=== PATIENT | male | born 1985 | race Caucasian/White ===

== ENCOUNTER 2017-10-30 18:39 | Emergency (ER) | payer SELFPAY ==
--- NOTE | 2017-10-30 19:11 | EDM.PDOC ---
ED HPI GENERAL MEDICAL PROBLEM - General Chief Complaint: ENT Problem Stated Complaint: SORE THROAT AND STOMACH Time Seen by Provider: 10/30/17 19:00 Source of Information: Reports: Patient History Limitations: Reports: No Limitations - History of Present Illness INITIAL COMMENTS - FREE TEXT/NARRATIVE: Patient is a 32-year-old male presents ED complaining of sore throat that started approximately 5 days ago and has progressively gotten worse. Initially started on both sides of his throat now is more pronounced on the right. There' s been no documented fever, nausea, vomiting, or inability to control his oral secretions. He has pain with swallowing. Does not complain of any fullness to underneath his tongue. There is no hoarse voice or changes in voice noted. He still eating and drinking okay. There's been no recent sick contact. He has had previous symptoms as such 5 years ago that self resolved. He's had a slight cough nonproductive. No sinus congestion, no runny nose, no nausea or vomiting. Intermittently has some right ear discomfort. He has been taking Tylenol and ibuprofen with food and notes intermittent mild stomach irritation. He's had no history of peptic ulcer, acid reflux, blood in stool, or melena. Patient is recovering alcoholic, 1.5 years. He denies any additional past medical history and is currently taking no medications. Surgical history none. Patient does smoke half pack per day. Denies any recreational drug use. Throat Pain Score (Numeric/FACES): 9 - Related Data Allergies Allergy/AdvReac Type Severity Reaction Status Date / Time No Known Allergies Allergy Verified 10/30/17 18:56 Home Meds: Home Meds Amoxicillin/Potassium Clav [Augmentin 875-125 Tablet] 1 each PO BID #19 tablet 10/30/17 [Rx] Past Medical History - Past Health History Medical/Surgical History: Denies Medical/Surgical History Social & Family History - Tobacco Use Smoking Status *Q: Current Every Day Smoker Years of Tobacco use: 13 Packs/Tins Daily: 0.5 - Caffeine Use Caffeine Use: Reports: Coffee, Energy Drinks, Soda, Tea - Recreational Drug Use Recreational Drug Type: Reports: Marijuana/Hashish ED ROS ENT - Review of Systems Review Of Systems: ROS reveals no pertinent complaints other than HPI. ED EXAM, ENT - Physical Exam Exam: See Below Exam Limited By: No Limitations General Appearance: Alert, WD/WN, No Apparent Distress Ears: Hearing Grossly Normal, TM Obscured by Cerumen (Bilateral) Nose: Normal Inspection, Normal Mucousa, No Blood Mouth/Throat: Normal Inspection, Pharyngeal Erythema, Throat Pain, Throat Swelling, Tonsillar Erythema (Throughout), Tonsillar Exudates (Intermittent white specks coating the tonsils.), Tonsillar Swelling. No: Dental Abcess, Dental Pain, Dental Tenderness, Drooling, Dry Mucous Membrane, Hoarse Voice, Muffled Voice, Tongue Swelling, Trismus Head: Atraumatic, Normocephalic Neck: Normal Inspection, Supple, Non-Tender, Full Range of Motion, Lymphadenopathy (R). No: Lymphadenopathy (L) Respiratory/Chest: No Respiratory Distress, Lungs Clear, Normal Breath Sounds, Chest Non-Tender Cardiovascular: Normal Peripheral Pulses, Regular Rate, Rhythm GI/Abdominal: Normal Bowel Sounds, Soft, Non-Tender, No Organomegaly, No Distention Neurological: Alert, Oriented, CN II-XII Intact, Normal Cognition Psychiatric: Normal Affect, Normal Mood Skin: Warm, Dry, Intact, No Rash Course - Vital Signs Last Recorded V/S: Last Vital Signs Temp 98.1 F 10/30/17 20:00 Pulse 81 10/30/17 20:00 Resp 18 10/30/17 20:00 BP 149/100 H 10/30/17 18:49 Pulse Ox 97 10/30/17 20:00 - Orders/Labs/Meds Orders: Active Orders 24 hr Category Date Time Status CULTURE STREP A CONFIRMATION [] Stat Lab 10/30/17 19:10 Results STREP SCRN A RAPID W CULT CONF [] Stat Lab 10/30/17 19:10 Ordered Meds: Medications Discontinued Medications Generic Name Dose Route Start Last Admin Trade Name Freq PRN Reason Stop Dose Admin Amoxicillin/Clavulanate Potassium 1 tab 10/30/17 19:51 10/30/17 19:58 Augmentin 875 Mg/125 Mg PO 10/30/17 19:52 1 tab ONETIME ONE Administration - Re-Assessments/Exams Free Text/Narrative Re-Assessment/Exam: Will obtain a strep screen. It appears patient clinically has strep throat. He does have tonsillar lymphadenopathy noted the right side. There is no uvula deviation. White exudates to the tonsils noted. Posterior pharynx is quite erythematous. 10/30/17 19:52 Strep screen was negative. Clinically I believe patient has strep throat. Ordered Augmentin 875 one tab by mouth. We'll discharge patient home with instructions as documented. Departure - Departure Time of Disposition: 19:52 Disposition: Home, Self-Care 01 Condition: Good Clinical Impression: Strep throat - Discharge Information Prescriptions: Amoxicillin/Potassium Clav [Augmentin 875-125 Tablet] 1 each PO BID #19 tablet Instructions: Strep Throat, [id number], Sore Throat, [id number] Referrals: PCP,None [Primary Care Provider] - Forms: ED Department Discharge Additional Instructions: Clinically I believe he had strep throat. Treatment will be Augmentin 875 one tab by mouth twice a day for a total 10 days. First dose was given in the ED. Keep well-hydrated. He about stye. Utilize Tylenol 650 mg every 4-6 hours for discomfort. May use Aleve 1-2 tabs twice a day. Take with food to decrease any irritation of the stomach. Suggest using Zantac 150 once a day if he developed any stomach irritation. Please follow up with a primary care provider at the [facility] [place], operated by [facility] in [place] on follow-up to ensure resolution. Return to the ED if you develop any new or worsening symptoms. - My Orders Last 24 Hours: My Active Orders 10/30/17 19:10 CULTURE STREP A CONFIRMATION [RM] Stat STREP SCRN A RAPID W CULT CONF [] Stat - Assessment/Plan Last 24 Hours: My Active Orders 10/30/17 19:10 CULTURE STREP A CONFIRMATION [RM] Stat STREP SCRN A RAPID W CULT CONF [RM] Stat
[2017-10-30] MEDS ORDERED: Amoxicillin/Clavulanate K 875-125 MG Tab PO ONE (19:51)
== END 2017-10-30 20:03 | disposition home or self-care (01) ==
LOC: JD.ED 18:39
DX: J02.0 Streptococcal pharyngitis (principal); F17.210 Nicotine dependence, cigarettes, uncomplicated
CPT/HCPCS: 87081; 87430; 99283; A9270

== ENCOUNTER 2018-11-17 11:09 | Emergency (ER) | payer SELFPAY ==
[2018-11-17] MEDS ORDERED: Ketorolac 30 MG/ML SDV IM ONE (11:40)
--- NOTE | 2018-11-17 11:46 | EDM.PDOC ---
ED HPI GENERAL MEDICAL PROBLEM - General Chief Complaint: ENT Problem Stated Complaint: TOOTH ACHE Time Seen by Provider: 11/17/18 11:16 Source of Information: Reports: Patient, RN Notes Reviewed History Limitations: Reports: No Limitations - History of Present Illness INITIAL COMMENTS - FREE TEXT/NARRATIVE: Patient is a 33-year-old male who presents to the ED for the evaluation of tooth pain. The patient notes he has a couple cavities. He has pain mostly on the left side of his face, both on the upper and lower jaw. He believes that his upper side of his left jaw has a tooth that is broken away, and possibly just a cavity on the bottom part of his jaw. He states he's called around all the dentists in [place], and they're not able to get him in for a few weeks. He is sensitive to hot and cold sensations. He has been having some good pain relief with aspirin, but has been taking a lot of this over the past few days. He notes he does have some shooting pain into his upper left jaw, that radiates to the left side of his head. He denies any headache at this time. No blurred vision or double vision, no hearing problems. He further denies any other sinus or cold-like symptoms. Left Tooth/Teeth Pain Score (Numeric/FACES): 4 - Related Data Allergies Allergy/AdvReac Type Severity Reaction Status Date / Time No Known Allergies Allergy Verified 11/17/18 11:19 Home Meds: Home Meds Amoxicillin/Clavulanate K [Augmentin 875-125 MG] 1 tab PO BID #20 tablet [Rx] Past Medical History - Past Health History Medical/Surgical History: Denies Medical/Surgical History Social & Family History - Tobacco Use Smoking Status *Q: Current Every Day Smoker Years of Tobacco use: 10 Packs/Tins Daily: 1 - Caffeine Use Caffeine Use: Reports: Coffee - Recreational Drug Use Recreational Drug Use: No ED ROS ENT - Review of Systems Review Of Systems: See Below Constitutional: Reports: No Symptoms HEENT: Reports: Dental Pain. Denies: Sinus Problem Respiratory: Reports: No Symptoms Cardiovascular: Reports: No Symptoms Endocrine: Reports: No Symptoms GI/Abdominal: Reports: No Symptoms : Reports: No Symptoms Musculoskeletal: Reports: No Symptoms Skin: Reports: No Symptoms Neurological: Reports: No Symptoms Psychiatric: Reports: No Symptoms Hematologic/Lymphatic: Reports: No Symptoms Immunologic: Reports: No Symptoms ED EXAM, ENT - Physical Exam Exam: See Below Exam Limited By: No Limitations General Appearance: Alert, WD/WN, No Apparent Distress Eye Exam: Bilateral Eye: EOMI, Normal Inspection, PERRL Ears: Normal External Exam, Normal Canal, Hearing Grossly Normal, Normal TMs Nose: Normal Inspection, Normal Mucousa, No Blood Mouth/Throat: Normal Inspection, Normal Gums, Normal Lips, Normal Oropharynx, Normal Teeth (Dentition in fair repair), Dental Pain (Noted to the left upper molars and lower left molars.) Head: Atraumatic, Normocephalic Neck: Normal Inspection, Supple, Non-Tender, Full Range of Motion Respiratory/Chest: No Respiratory Distress, Lungs Clear, Normal Breath Sounds, No Accessory Muscle Use, Chest Non-Tender Cardiovascular: Normal Peripheral Pulses, Regular Rate, Rhythm, No Murmur Extremities: Normal Inspection, Normal Capillary Refill Neurological: Alert, Oriented, Normal Cognition, No Motor/Sensory Deficits Psychiatric: Normal Affect, Normal Mood Skin: Warm, Dry, Intact, Normal Color, No Rash Course - Vital Signs Last Recorded V/S: Last Vital Signs Temp 98.1 F 11/17/18 11:15 Pulse 63 11/17/18 11:15 Resp 14 11/17/18 11:15 BP 147/75 H 11/17/18 11:15 Pulse Ox 94 L 11/17/18 11:15 - Orders/Labs/Meds Meds: Medications Discontinued Medications Generic Name Dose Route Start Last Admin Trade Name Bassemq PRN Reason Stop Dose Admin Ketorolac Tromethamine 30 mg 11/17/18 11:40 Toradol IM 11/17/18 11:41 ONETIME ONE - Re-Assessments/Exams Free Text/Narrative Re-Assessment/Exam: 11/17/18 11:47 Patient presents to the ED for evaluation of tooth pain. I do believe the patient would benefit from a course of antibiotics, I also have ordered 30 mg IM Toradol for pain relief. I have given general recommendations and will provide the patient with a list of dentists located in [place] as well so that he might be able to find dental care sooner than a few weeks. Departure - Departure Time of Disposition: 11:48 Disposition: Home, Self-Care 01 Condition: Fair Clinical Impression: Dental caries - Discharge Information *PRESCRIPTION DRUG MONITORING PROGRAM REVIEWED*: No *COPY OF PRESCRIPTION DRUG MONITORING REPORT IN PATIENT FIDE: No Prescriptions: Amoxicillin/Clavulanate K [Augmentin 875-125 MG] 1 tab PO BID #20 tablet Instructions: Diet and Dental Disease, Preventive Dental Care, Adult Referrals: PCP,None [Primary Care Provider] - Additional Instructions: You have been evaluated in the ED for your dental pain. You have been provided with a script for Augmentin. This was electronically sent to [facility] located on [address]. Please take this medication as directed. (1 tab twice daily for 10 days or until gone). This medication may cause some diarrhea, recommend that you take a probiotic as well. Aleve provides good pain relief for dental pain. Please take 1-2 tabs twice daily as needed for pain. You may use hot pack/ ice packs to the affected area as tolerated in 15-20 minute intervals. You will ultimately need to find a dentist to provide definitive management of your dental pain. Please return to the ED if your symptoms change or worsen.
== END 2018-11-17 11:57 | disposition home or self-care (01) ==
LOC: JD.ED 11:09
DX: K02.9 Dental caries, unspecified (principal); F17.210 Nicotine dependence, cigarettes, uncomplicated
CPT/HCPCS: 96372; 99282; J1885; 99283

== ENCOUNTER 2019-02-16 21:28 | Emergency (ER) | payer SELFPAY ==
[2019-02-16] MEDS ORDERED: Diphtheria,Pertussis(Acell),Tetanus Vaccine 0.5 ML SDV IM ONE (22:06)
[2019-02-16] MEDS ORDERED: Lidocaine 1% 10 ML MDV INJECT ONE (22:06)
[2019-02-16] MEDS ORDERED: Bupivacaine 0.5% 10 ML SDV INJECT ONE (22:06)
--- NOTE | 2019-02-16 22:09 | EDM.PDOC ---
ED HPI GENERAL MEDICAL PROBLEM - General Chief Complaint: General Stated Complaint: FISH HOOK IN PINKY FINGER LEFT HAND Time Seen by Provider: 02/16/19 21:44 Source of Information: Reports: Patient History Limitations: Reports: No Limitations - History of Present Illness INITIAL COMMENTS - FREE TEXT/NARRATIVE: The patient states that he accidentally dropped his tackle box, and when he went to corn picker a fishhook, he didn't realize that the fishhook was still connected to a fishing pole, which caused the fishhook to stay in place when he went to move it, driving one of the barbs into his left 5th finger, around 20: 45 tonight. He is otherwise uninjured. The patient states that his last tetanus vaccination was probably 15-20 years ago. The patient does not have a PCP. Left Finger-Little Pain Score (Numeric/FACES): 0 - Related Data Allergies Allergy/AdvReac Type Severity Reaction Status Date / Time No Known Allergies Allergy Verified 11/17/18 11:19 Home Meds: Home Meds Cephalexin [Keflex] 1 tab PO Q6H #20 capsule 02/16/19 [Rx] Past Medical History - Past Health History Medical/Surgical History: Denies Medical/Surgical History Social & Family History - Tobacco Use Smoking Status *Q: Current Every Day Smoker Years of Tobacco use: 14 Packs/Tins Daily: 0.5 Packs/Tins Daily Comment: Down from 2 ppd - Caffeine Use Caffeine Use: Reports: Coffee - Alcohol Use Alcohol Use History: Yes Alcohol Use Frequency: Rarely - Recreational Drug Use Recreational Drug Use: Yes Drug Use in Last 12 Months: No Recreational Drug Type: Reports: Marijuana/Hashish (last smoked in 2015) - Living Situation & Occupation Living situation: Reports: Single, Alone Occupation: Employed ([employer]) ED ROS GENERAL - Review of Systems Review Of Systems: ROS reveals no pertinent complaints other than HPI. ED EXAM, GENERAL - Physical Exam Exam: See Below Exam Limited By: No Limitations General Appearance: Alert, WD/WN, No Apparent Distress Extremities: Other (There is a 3-prong fishhook, with one of the prongs stuck into the patient's left fifth finger, radial aspect, of the proximal phalanx, just proximal to the PIP joint. The tip of the hook is embedded in the soft tissue; it has not exited through the skin. The patient reports mild paresthesia to the left finger, but overall, neurovascular status of the finger appears to be intact.) Foreign Body Removal - Pre-Procedure Indication: [place] in left 5th finger Consent Obtained: Reports: Patient Performing Doctor:: Lucas Akers - Post-Procedure Complications:: No Comments:: See procedure note under reassessment/exam Course - Vital Signs Last Recorded V/S: Last Vital Signs Temp 36.4 C 02/16/19 21:38 Pulse 77 02/16/19 21:38 Resp 16 02/16/19 21:38 BP 143/116 H 02/16/19 21:38 Pulse Ox 99 02/16/19 21:38 - Orders/Labs/Meds Orders: Active Orders 24 hr Category Date Time Status Vaccines to be Administered [RC] PER UNIT ROUTINE Care 02/16/19 22:06 Active Toes Fifth Digit Rt T9 [CR] Stat Exams 02/16/19 22:40 Stop Req Meds: Medications Discontinued Medications Generic Name Dose Route Start Last Admin Trade Name Niharika PRN Reason Stop Dose Admin Bupivacaine HCl 10 ml 02/16/19 22:06 02/16/19 22:19 Sensorcaine-Mpf 0.5% INJECT 02/16/19 22:07 10 ml ONETIME ONE Administration Cephalexin 500 mg 02/16/19 22:50 02/16/19 23:18 Keflex PO 02/16/19 22:51 Not Given ONETIME STA Diphtheria/Tetanus/Acell Pertussis 0.5 ml 02/16/19 22:06 02/16/19 22:18 Adacel IM 02/16/19 22:07 0.5 ml .ONCE ONE Administration Lidocaine HCl 10 ml 02/16/19 22:06 02/16/19 22:19 Xylocaine 1% INJECT 02/16/19 22:07 10 ml ONETIME ONE Administration - Re-Assessments/Exams Free Text/Narrative Re-Assessment/Exam: 02/16/19 22:07 I don't believe I'm going to be able to back the hook out, therefore I will apply a digital block to the finger, cut the hook, then push it through. The patient will be given a tetanus vaccination during this ED visit. 02/16/19 22:48 A digital block was applied to the patient's left 5th finger, using a 50:50 admixture of lidocaine 1% without epinephrine and bupivacaine 0.5% without epinephrine. Within a few minutes, there was good anesthesia to the entire finger. The fishhook ovi was clipped and pushed through, without incident. The patient tolerated the procedure well. I will start him on oral Keflex, and prescribe a 5-day course of the same. Departure - Departure Time of Disposition: 22:52 Disposition: Home, Self-Care 01 Condition: Good Clinical Impression: [place] injury to finger - Discharge Information *PRESCRIPTION DRUG MONITORING PROGRAM REVIEWED*: Not Applicable *COPY OF PRESCRIPTION DRUG MONITORING REPORT IN PATIENT FIDE: Not Applicable Prescriptions: Cephalexin [Keflex] 1 tab PO Q6H #20 capsule Referrals: PCP,None [Primary Care Provider] - Forms: ED Department Discharge Additional Instructions: You were seen in the emergency room after getting a fish hook into your left fifth finger. A digital block was applied to your finger, and the fishhook was pushed through. Keep your finger clean with ordinary soap and water when you bathe. You have been started on the antibiotic Keflex. A prescription for Keflex has been sent to the [facility], located at [address] [place] [address]. Take one tablet of Keflex every 6 hours, as prescribed. Finish the entire prescription unless told otherwise by a doctor. Take roab-xck-bmewvic ibuprofen, 2-3 tablets (400-600 mg) every 8 hours, with food, as needed for discomfort. You received a tetanus vaccination during your ER visit. Your finger will not likely get infected, but if there are concerns of infection , including significant swelling, redness, drainage, or fever, please return to the ER for reevaluation. - My Orders Last 24 Hours: My Active Orders 02/16/19 22:06 Vaccines to be Administered [RC] PER UNIT ROUTINE 02/16/19 22:40 Toes Fifth Digit Rt T9 [CR] Stat - Assessment/Plan Last 24 Hours: My Active Orders 02/16/19 22:06 Vaccines to be Administered [RC] PER UNIT ROUTINE 02/16/19 22:40 Toes Fifth Digit Rt T9 [CR] Stat
[2019-02-16] MEDS ORDERED: Cephalexin 500 MG Cap PO STA (22:50)
== END 2019-02-16 23:18 | disposition home or self-care (01) ==
LOC: JD.ED 21:28
DX: S60.457A Superficial foreign body of left little finger, initial encounter (principal); F17.210 Nicotine dependence, cigarettes, uncomplicated; Z23 Encounter for immunization; W45.8XXA Other foreign body or object entering through skin, initial encounter
CPT/HCPCS: 64450; 90471; 90715; 99283; J2001; J3490; 10120

== ENCOUNTER 2019-09-14 23:43 | Emergency (ER) | payer SELFPAY ==
[2019-09-15] MEDS ORDERED: Doxycycline 100 MG Cap PO ONE (00:49)
--- NOTE | 2019-09-15 01:05 | EDM.PDOC ---
ED HPI GENERAL MEDICAL PROBLEM - General Chief Complaint: ENT Problem Stated Complaint: COUGH SORE THROAT FEVER Time Seen by Provider: 09/15/19 00:40 Source of Information: Reports: Patient, RN Notes Reviewed - History of Present Illness INITIAL COMMENTS - FREE TEXT/NARRATIVE: 34-year-old male comes in with throat pain. Last weekend he had throat discomfort, some sinus congestion headache muscle aching fever chills. Did start getting better and then in the past half day or so the throat pain has been worsening. Is now painful to swallow. He is no longer coughing much. He is still having some chills but no fever at this time. Throat Pain Score (Numeric/FACES): 6 - Related Data Allergies Allergy/AdvReac Type Severity Reaction Status Date / Time No Known Allergies Allergy Verified 09/14/19 23:54 Home Meds: Home Meds Doxycycline [Vibramycin] 100 mg PO BID #14 tab 09/15/19 [Rx] Past Medical History - Past Health History Medical/Surgical History: Denies Medical/Surgical History - Infectious Disease History Infectious Disease History: Reports: None Social & Family History - Tobacco Use Smoking Status *Q: Unknown Ever Smoked - Caffeine Use Caffeine Use: Reports: Coffee - Living Situation & Occupation Living situation: Reports: Single, Alone Occupation: Employed ([employer] ED ROS ENT - Review of Systems Review Of Systems: See Below Constitutional: Reports: Fever, Chills HEENT: Reports: Rhinitis (Better), Throat Pain Respiratory: Reports: Cough. Denies: Shortness of Breath, Wheezing, Sputum (Is no) Cardiovascular: Denies: Chest Pain GI/Abdominal: Denies: Abdominal Pain, Vomiting Musculoskeletal: Reports: Other (He had achiness several days ago now gone) Skin: Reports: No Symptoms Neurological: Reports: Headache ED EXAM, ENT - Physical Exam Exam: See Below (On) General Appearance: Alert, No Apparent Distress Eye Exam: Bilateral Eye: PERRL Nose: Normal Inspection Mouth/Throat: Pharyngeal Erythema (Mild). No: Throat Swelling, Tonsillar Exudates, Tonsillar Swelling Head: No: Facial Swelling Neck: Supple. No: Lymphadenopathy (L), Lymphadenopathy (R) Respiratory/Chest: No Respiratory Distress, Lungs Clear, Normal Breath Sounds Cardiovascular: Tachycardia Neurological: Alert, Oriented, No Motor/Sensory Deficits Skin: Warm, Dry, Normal Color Course - Vital Signs Last Recorded V/S: Last Vital Signs Temp 97.5 F 09/14/19 23:54 Pulse 101 H 09/14/19 23:54 Resp 16 09/14/19 23:54 BP 132/75 09/14/19 23:54 Pulse Ox 100 09/14/19 23:54 - Orders/Labs/Meds Orders: Active Orders 24 hr Category Date Time Status CULTURE STREP A CONFIRMATION [RM] Stat Lab 09/14/19 23:50 Results STREP SCRN A RAPID W CULT CONF [RM] Stat Lab 09/14/19 23:50 Results Meds: Medications Discontinued Medications Generic Name Dose Route Start Last Admin Trade Name Niharika PRN Reason Stop Dose Admin Doxycycline Hyclate 100 mg 09/15/19 00:49 09/15/19 00:59 Vibramycin PO 09/15/19 00:50 100 mg ONETIME ONE Administration - Re-Assessments/Exams Free Text/Narrative Re-Assessment/Exam: 09/15/19 01:48 Rapid strep did come back negative. We will send a prescription home with him doxycycline use if pain does not get better as expected. Departure - Departure Time of Disposition: 01:48 Disposition: Home, Self-Care 01 Condition: Fair Clinical Impression: Pharyngitis - Discharge Information Prescriptions: Doxycycline [Vibramycin] 100 mg PO BID #14 tab Instructions: Pharyngitis, [id number] Referrals: PCP,None [Primary Care Provider] - Forms: ED Department Discharge Additional Instructions: Your strep screen did come back negative so the throat discomfort you have is likely viral. Discomfort does not get better over the next 12 to 24 hours fill the prescription for doxycycline and take that 1 twice daily for 1 week. You can alternate Tylenol and ibuprofen as needed. Follow-up clinic as needed, return to ED as needed. Sepsis Event Note - Evaluation Sepsis Screening Result: No Definite Risk - Focused Exam Vital Signs: Vital Signs Temp Pulse Resp BP Pulse Ox 09/14/19 23:54 97.5 F 101 H 16 132/75 100 Date Exam was Performed: 09/15/19 Time Exam was Performed: 04:18 - My Orders Last 24 Hours: My Active Orders 09/14/19 23:50 CULTURE STREP A CONFIRMATION [RM] Stat STREP SCRN A RAPID W CULT CONF [RM] Stat - Assessment/Plan Last 24 Hours: My Active Orders 09/14/19 23:50 CULTURE STREP A CONFIRMATION [RM] Stat STREP SCRN A RAPID W CULT CONF [RM] Stat
== END 2019-09-15 01:52 | disposition home or self-care (01) ==
LOC: JD.ED 23:43
DX: J02.9 Acute pharyngitis, unspecified (principal)
CPT/HCPCS: 87081; 87430; 99283; A9270

== ENCOUNTER 2020-08-05 16:30 | Emergency (ER) | payer SELFPAY ==
[2020-08-05] MEDS ORDERED: Sodium Chloride 0.9% 10 ML Syringe FLUSH PRN (16:45)
--- NOTE | 2020-08-05 16:58 | EDM.PDOC ---
ED HPI GENERAL MEDICAL PROBLEM - General Chief Complaint: Chemical Exposure Stated Complaint: ACCIDENTALLY DRANK HYDROCHLORIC ACID Time Seen by Provider: 08/05/20 16:39 Source of Information: Reports: Patient, RN Notes Reviewed History Limitations: Reports: No Limitations - History of Present Illness INITIAL COMMENTS - FREE TEXT/NARRATIVE: Patient is a 35 who presents to the ED after accidentally ingesting HCl. Patient notes about 20 minutes prior to arrival, he accidentally drank about 1 ounce of a rust sustainable agriculture specialist, that he mistakenly thought was a shot of alcohol. As it was sitting in a shot glass near a wire walker Kristopher's shot he was supposed to take. He states he felt a little bit nauseous, and did vomit twice but right now he is just having some epigastric burning, but feeling fine. Patient denies any other sick-like symptoms, fever/chills, cough/shortness of breath, nausea/vomiting/diarrhea. Epigastric Pain Score (Numeric/FACES): 3 - Related Data Allergies Allergy/AdvReac Type Severity Reaction Status Date / Time pineapple Allergy Hives Verified 08/05/20 16:40 Home Meds: Home Meds Doxycycline [Vibramycin] 100 mg PO BID #14 tab 09/15/19 [Rx] Past Medical History - Past Health History Medical/Surgical History: Denies Medical/Surgical History - Infectious Disease History Infectious Disease History: Reports: None Social & Family History - Tobacco Use Tobacco Use Status *Q: Current Every Day Tobacco User Years of Tobacco use: 16 Packs/Tins Daily: 1 - Caffeine Use Caffeine Use: Reports: None - Recreational Drug Use Recreational Drug Use: No - Living Situation & Occupation Living situation: Reports: Single, Alone Occupation: Employed ([employer]) ED ROS GENERAL - Review of Systems Review Of Systems: Comprehensive ROS is negative, except as noted in HPI. ED EXAM, BURN/SMOKE INHALATION - Physical Exam Exam: See Below Exam Limited By: No Limitations General Appearance: Alert, WD/WN, No Apparent Distress Mouth/Throat: No Symptoms Reported (no sign of waddell or otherwise) Respiratory: No Respiratory Distress, Lungs Clear, Normal Breath Sounds, No Accessory Muscle Use, Chest Non-Tender Cardiovascular: Normal Peripheral Pulses, Regular Rate, Rhythm, No Edema GI/Abdominal: Normal Bowel Sounds, Soft, Non-Tender, No Distention, No Mass Extremities: Normal Inspection, Normal Capillary Refill Neurological: Alert, Oriented, Normal Cognition, No Motor/Sensory Deficits Psychiatric: Normal Affect, Normal Mood Skin Exam: Warm, Dry, Intact, Normal Color, No Rash #1 Interpretation EKG Date: 08/05/20 Time: 16:45 Rhythm: NSR Rate (Beats/Min): 88 [place]: Normal P-Wave: Present QRS: Normal ST-T: Normal QT: Normal EKG Interpretation Comments: No obvious ischemia or acute ST changes noted, reviewed by myself and Dr. Sanchez. Course - Vital Signs Last Recorded V/S: Last Vital Signs Temp 97 F 08/05/20 16:37 Pulse 87 08/05/20 18:13 Resp 18 08/05/20 18:13 BP 145/85 H 08/05/20 18:13 Pulse Ox 99 08/05/20 18:13 - Orders/Labs/Meds Orders: Active Orders 24 hr Category Date Time Status EKG Documentation Completion [RC] STAT Care 08/05/20 16:45 Ordered Peripheral IV Care [RC] . DIRECTED Care 08/05/20 16:45 Ordered CBC WITH AUTO DIFF [HEME] Q2 Lab 08/05/20 18:45 Ordered CBC WITH AUTO DIFF [HEME] [facility] Lab 08/05/20 19:45 Ordered CBC WITH AUTO DIFF [HEME] [facility] Lab 08/05/20 20:45 Ordered COMPREHENSIVE METABOLIC PN,CMP [CHEM] Q2 Lab 08/05/20 18:45 Ordered COMPREHENSIVE METABOLIC PN,CMP [CHEM] Q2 Lab 08/05/20 19:45 Ordered COMPREHENSIVE METABOLIC PN,CMP [CHEM] Q2 Lab 08/05/20 20:45 Ordered MAGNESIUM [CHEM] Q2 Lab 08/05/20 18:45 Ordered MAGNESIUM [CHEM] Q2 Lab 08/05/20 19:45 Ordered MAGNESIUM [CHEM] Q2 Lab 08/05/20 20:45 Ordered Sodium Chloride 0.9% [Saline Flush] Med 08/05/20 16:45 Ordered 10 ml FLUSH ASDIRECTED PRN Peripheral IV Insertion Adult [OM.PC] Routine Oth 08/05/20 16:44 Ordered Medication Orders Sodium Chloride (Saline Flush) 10 ml FLUSH ASDIRECTED PRN PRN Reason: Keep Vein Open Last Admin: 08/05/20 16:57 Dose: 10 ml Documented by: CRYSTAL Labs: Laboratory Tests 08/05/20 08/05/20 08/05/20 Range/Units 16:59 16:59 17:50 WBC 10.31 H 14.78 H (4.23-9.07) K/mm3 RBC 5.13 5.04 (4.63-6.08) M/mm3 Hgb 14.6 14.4 (13.7-17.5) gm/dl Hct 45.2 44.8 (40.1-51.0) % MCV 88.1 88.9 (79.0-92.2) fl MCH 28.5 28.6 (25.7-32.2) pg MCHC 32.3 32.1 L (32.2-35.5) g/dl RDW Std Deviation 42.8 42.7 (35.1-43.9) fL Plt Count 475 H 484 H (163-337) K/mm3 MPV 9.8 9.8 (9.4-12.3) fl Neut % (Auto) 61.5 69.6 H (34.0-67.9) % Lymph % (Auto) 26.0 18.1 L (21.8-53.1) % Moody % (Auto) 7.3 9.1 (5.3-12.2) % Eos % (Auto) 4.5 2.6 (0.8-7.0) Baso % (Auto) 0.6 0.4 (0.1-1.2) % Neut # (Auto) 6.35 H 10.29 H (1.78-5.38) K/mm3 Lymph # (Auto) 2.68 2.67 (1.32-3.57) K/mm3 Moody # (Auto) 0.75 1.34 H (0.30-0.82) K/mm3 Eos # (Auto) 0.46 0.39 (0.04-0.54) K/mm3 Baso # (Auto) 0.06 0.06 (0.01-0.08) K/mm3 Manual Slide Review Abnormal smear Sodium 142 (136-145) mEq/L Potassium 4.2 (3.5-5.1) mEq/L Chloride 105 (98-107) mEq/L Carbon Dioxide 25 (21-32) mEq/L Anion Gap 16.2 H (5-15) BUN 12 (7-18) mg/dL Creatinine 1.1 (0.7-1.3) mg/dL Est Cr Clr Drug Dosing 86.59 mL/min Estimated GFR (MDRD) > 60 (>60) mL/min BUN/Creatinine Ratio 10.9 L (14-18) Glucose 118 H (74-106) mg/dL Calcium 9.2 (8.5-10.1) mg/dL Magnesium 2.0 (1.8-2.4) mg/dl Total Bilirubin 0.4 (0.2-1.0) mg/dL AST 21 (15-37) U/L ALT 21 (16-63) U/L Alkaline Phosphatase 86 (46-116) U/L Total Protein 7.5 (6.4-8.2) g/dl Albumin 4.1 (3.4-5.0) g/dl Globulin 3.4 gm/dL Albumin/Globulin Ratio 1.2 (1-2) 08/05/20 Range/Units 17:50 WBC (4.23-9.07) K/mm3 RBC (4.63-6.08) M/mm3 Hgb (13.7-17.5) gm/dl Hct (40.1-51.0) % MCV (79.0-92.2) fl MCH (25.7-32.2) pg MCHC (32.2-35.5) g/dl RDW Std Deviation (35.1-43.9) fL Plt Count (163-337) K/mm3 MPV (9.4-12.3) fl Neut % (Auto) (34.0-67.9) % Lymph % (Auto) (21.8-53.1) % Moody % (Auto) (5.3-12.2) % Eos % (Auto) (0.8-7.0) Baso % (Auto) (0.1-1.2) % Neut # (Auto) (1.78-5.38) K/mm3 Lymph # (Auto) (1.32-3.57) K/mm3 Moody # (Auto) (0.30-0.82) K/mm3 Eos # (Auto) (0.04-0.54) K/mm3 Baso # (Auto) (0.01-0.08) K/mm3 Manual Slide Review Sodium 143 (136-145) mEq/L Potassium 4.7 (3.5-5.1) mEq/L Chloride 106 (98-107) mEq/L Carbon Dioxide 26 (21-32) mEq/L Anion Gap 15.7 H (5-15) BUN 12 (7-18) mg/dL Creatinine 1.1 (0.7-1.3) mg/dL Est Cr Clr Drug Dosing 86.59 mL/min Estimated GFR (MDRD) > 60 (>60) mL/min BUN/Creatinine Ratio 10.9 L (14-18) Glucose 107 H (74-106) mg/dL Calcium 10.4 H (8.5-10.1) mg/dL Magnesium 2.1 (1.8-2.4) mg/dl Total Bilirubin 0.3 (0.2-1.0) mg/dL AST 17 (15-37) U/L ALT 22 (16-63) U/L Alkaline Phosphatase 81 (46-116) U/L Total Protein 7.2 (6.4-8.2) g/dl Albumin 4.0 (3.4-5.0) g/dl Globulin 3.2 gm/dL Albumin/Globulin Ratio 1.3 (1-2) Meds: Medications Generic Name Dose Route Start Last Admin Trade Name Freq PRN Reason Stop Dose Admin Sodium Chloride 10 ml 08/05/20 16:45 08/05/20 16:57 Saline Flush FLUSH 10 ml ASDIRECTED PRN Administration Keep Vein Open Discontinued Medications Generic Name Dose Route Start Last Admin Trade Name Freq PRN Reason Stop Dose Admin Calcium Gluconate 1 gm 08/05/20 17:15 08/05/20 18:00 Calcium Gluconate IVPUSH 08/05/20 17:46 1 gm Q15M JULIO Administration Al Hydroxide/Mg Hydroxide 30 0 ml 08/05/20 17:40 08/05/20 17:46 ml/ Lidocaine HCl 15 ml PO 08/05/20 17:41 45 ml ONETIME ONE Administration - Re-Assessments/Exams Free Text/Narrative Re-Assessment/Exam: 08/05/20 16:57 Patient presents to the ED for accidental ingestion of a resting over, poison control was consulted on the case, they do recommend getting EKG hooking him up to a ekg monitor, getting a CBC, CMP and a magnesium level, and repeating this every 2 hours for about 6 hours and observing for that long as well. They state depending on the level or amount he took, he may benefit from a gastric lavage of calcium gluconate. At this time I believe the patient took very little of this before he realized what this actually was. We will continue to monitor and check labs per their suggestions and discharge home hopefully after he has been cleared from this visit. 08/05/20 17:21 Apparently he ingested hydrofluoric acid and not HCl like he told us in the beginning, poison control is very concerned about damage, they do recommend giving 2 to 3 amps of 10% calcium gluconate for GI protection and I have ordered this, and labs as they suggested as well, they would like labs repeated every hour for about 4 hours. 08/05/20 19:14 Patient wants to leave the ER, this will be AGAINST MEDICAL ADVICE, as he should be evaluated earliest observed until 2044 when the laboratory evaluation can be completed. I did warn him of the possibility of , cardiac dysrhythmia, and internal bleeding due to the caustic material he ingested. Nonetheless patient still wants to leave. Departure - Departure Time of Disposition: 19:15 Disposition: Against Medical Advice 07 Condition: Good Clinical Impression: Accidental ingestion of toxic substance Qualifiers: Encounter type: initial encounter Qualified Code(s): T65.91XA - Toxic effect of unspecified substance, accidental (unintentional), initial encounter - Discharge Information Referrals: PCP,None [Primary Care Provider] - Forms: ED Department Discharge Sepsis Event Note (ED) - Evaluation Sepsis Screening Result: No Definite Risk - Focused Exam Vital Signs: Vital Signs Temp Pulse Resp BP Pulse Ox 08/05/20 18:13 87 18 145/85 H 99 08/05/20 16:37 97 F 98 16 138/88 99 - My Orders Last 24 Hours: My Active Orders 08/05/20 16:44 Peripheral IV Insertion Adult [OM.PC] Routine 08/05/20 16:45 EKG Documentation Completion [RC] STAT Peripheral IV Care [RC] . DIRECTED Sodium Chloride 0.9% [Saline Flush] 10 ml FLUSH ASDIRECTED PRN 08/05/20 18:45 CBC WITH AUTO DIFF [HEME] Q2H COMPREHENSIVE METABOLIC PN,CMP [CHEM] Q2H MAGNESIUM [CHEM] Q2H 08/05/20 19:45 CBC WITH AUTO DIFF [HEME] Q2H COMPREHENSIVE METABOLIC PN,CMP [CHEM] Q2H MAGNESIUM [CHEM] Q2H 08/05/20 20:45 CBC WITH AUTO DIFF [HEME] Q2H COMPREHENSIVE METABOLIC PN,CMP [CHEM] Q2H MAGNESIUM [CHEM] Q2H - Assessment/Plan Last 24 Hours: My Active Orders 08/05/20 16:44 Peripheral IV Insertion Adult [OM.PC] Routine 08/05/20 16:45 EKG Documentation Completion [RC] STAT Peripheral IV Care [RC] . DIRECTED Sodium Chloride 0.9% [Saline Flush] 10 ml FLUSH ASDIRECTED PRN 08/05/20 18:45 CBC WITH AUTO DIFF [HEME] Q2H COMPREHENSIVE METABOLIC PN,CMP [CHEM] Q2H MAGNESIUM [CHEM] Q2H 08/05/20 19:45 CBC WITH AUTO DIFF [HEME] Q2H COMPREHENSIVE METABOLIC PN,CMP [CHEM] Q2H MAGNESIUM [CHEM] Q2H 08/05/20 20:45 CBC WITH AUTO DIFF [HEME] Q2H COMPREHENSIVE METABOLIC PN,CMP [CHEM] Q2H MAGNESIUM [CHEM] Q2H
[2020-08-05] MEDS: Calcium Gluconate 10% 1 GM/10 ML SDV IVPUSH SCH ×3 (17:26→18:00)
[2020-08-05] MEDS ORDERED: Alum Hydrox/Mag Hydrox/Simeth 30 ML, Lidocaine 2% 15 ML PO ONE ×2 (17:40)
== END 2020-08-05 19:19 | disposition left against medical advice (07) ==
LOC: JD.ED 16:30
DX: T54.2X1A Toxic effect of corrosive acids and acid-like substances, accidental (unintentional), initial encounter (principal); R10.13 Epigastric pain; Z72.0 Tobacco use; Z91.018 Allergy to other foods
CPT/HCPCS: 36415; 80053; 83735; 85025; 93005; 96374; 96376; 99283; A9270; J0610; 93010; 99284

== ENCOUNTER 2021-11-29 22:00 | Emergency (ER) | payer SELFPAY ==
[2021-11-29] MEDS ORDERED: Ketorolac 30 MG/ML SDV IM ONE (22:30)
[2021-11-29] MEDS ORDERED: diphenhydrAMINE 50 MG/ML SDV IM ONE (22:30)
[2021-11-29] MEDS ORDERED: Metoclopramide 10 MG/2 ML SDV IM ONE (22:30)
[2021-11-29 23:02] LABS: ESTIMATED GFR > 60 mL/min (>60)
[2021-11-29 23:12] LABS: CORONAVIRUS COVID-19 NAA POSITIVE (NEGATIVE)
== END 2021-11-29 23:32 | disposition home or self-care (01) ==
LOC: JD.ED 22:00
DX: U07.1 COVID-19 (principal); Z91.018 Allergy to other foods; Z28.310 Unvaccinated for COVID-19
CPT/HCPCS: 0240U; 36415; 71045; 80053; 85025; 86140; 96372; 99284; J1200; J1885; J2765; 99283

== ENCOUNTER 2023-07-31 03:23 | Emergency (ER) | payer BC ==
[2023-07-31 03:58] LABS: BASOPHILS PERCENT AUTO 0.6 % (0.0-1.0); EOSINOPHILS ABSOLUTE AUTO 0.1 K/mm3 (0.0-0.4); EOSINOPHILS PERCENT AUTO 1.4 % (0.0-6.0); HEMATOCRIT 41.7 % (42.0-52.0); HEMOGLOBIN 13.8 gm/dl (14.0-18.0); IMMATURE GRAN ABSOLUTE AUTO 0.02 K/mm3 (0.00-0.05); IMMATURE GRAN PERCENT AUTO 0.3 % (0.0-0.4); LYMPHOCYTES ABSOLUTE AUTO 1.5 K/mm3 (1.0-4.8); LYMPHOCYTES PERCENT AUTO 24.7 % (24.0-44.0); MEAN CORPUSCULAR HEMOGLOBIN 28.3 pg (28.0-32.0); MEAN CORPUSCULAR HGB CONC 33.1 g/dl (32.0-36.0); MEAN CORPUSCULAR VOLUME 85.5 fl (83.0-99.0); MEAN PLATELET VOLUME 9.5 fl (9.4-12.4); MONOCYTES PERCENT AUTO 15.6 % (0.0-8.0); NEUTROPHILS ABSOLUTE AUTO 3.6 K/mm3 (1.8-7.7); NEUTROPHILS PERCENT AUTO 57.4 % (41.0-71.0); PLATELET COUNT,PLT 311 K/mm3 (150-400); RED BLOOD CELL COUNT 4.88 M/mm3 (4.52-5.90); WHITE BLOOD CELL COUNT,WBC 6.23 K/mm3 (3.9-11.3)
[2023-07-31 04:31] LABS: CORONAVIRUS COVID-19 NAA NEGATIVE (NEGATIVE); INFLUENZA A NAA NEGATIVE (NEGATIVE); RESPIRATORY SYNCYTIAL VIR NAA NEGATIVE (NEGATIVE)
[2023-07-31 04:45] LABS: A/G RATIO 1.1 (1-2); ALBUMIN 3.8 g/dl (3.4-5.0); BILIRUBIN TOTAL 0.2 mg/dL (0.2-1.0); CALCIUM 8.4 mg/dL (8.5-10.1); EST CRCL DRUG DOSING (CG) 99.34 mL/min; MAGNESIUM 1.6 mg/dL (1.8-2.4); PROTEIN TOTAL,TP 7.4 g/dl (6.4-8.2)
== END 2023-07-31 04:23 | disposition left against medical advice (07) ==
LOC: JD.ED 03:23
DX: J10.1 Influenza due to other identified influenza virus with other respiratory manifestations (principal); F17.210 Nicotine dependence, cigarettes, uncomplicated; Z91.018 Allergy to other foods; Z86.16 Personal history of COVID-19
CPT/HCPCS: 0241U; 36415; 80053; 83735; 85025; 99283; 99282